=== PATIENT | female | born 1960 | race Caucasian/White ===

== ENCOUNTER 2016-10-27 12:52 | Inpatient (IN) | payer MEDICAID ==
[2016-10-27] VITALS (15 sets, daily range): BP systolic 83–170; BP diastolic 43–76
[~2016-10-27] VITALS: Ht 157.5 cm; Wt 78.0 kg
[~2016-10-27 12:52] MED LIST: AMLO10TA4 PO; ASPI-1159 PO; ATEN50TA PO; CINA30 PO; GABA300C PO; GLIM4TAB2 PO; PIOG30TA10 PO; REN800 PO
[2016-10-27] MEDS ORDERED: SODIUM CHLORIDE 0.9% 1000ML BAG (SEPSIS BOLUS) IV ONE (13:30)
[2016-10-27 13:40] LABS: BASOPHILS % 1.2 % (0.0-2.0); EOSINOPHILS % 1.2 % (0.0-5.0); HEMATOCRIT. 35.1 % (36.0-48.0); HEMOGLOBIN. 11.5 g/dL (12.0-16.0); LYMPHOCYTES % 12.1 % (20.0-50.0); MEAN CORPUSCULAR VOLUME 94.8 fL (81.0-99.0); MEAN PLATELET VOLUME 10.6 fl (7.4-10.4); MONOCYTES % 4.7 % (2.0-8.0); NEUTROPHILS % 80.8 % (40.0-76.0); PLATELET 163 x1000/uL (130-400)
[2016-10-27 13:48] LABS: INR 1.3; PROTHROMBIN TIME 13.7 sec (9.4-11.6)
[2016-10-27 13:54] LABS: CARBON DIOXIDE 26 mEq/L (21-32); CHLORIDE 98 mEq/L (98-107)
[2016-10-27 14:02] LABS: AMMONIA 47 uMol/L (<32)
[2016-10-27] MEDS ORDERED: ACETAMINOPHEN 325MG TABLET PO ONE (14:15)
[2016-10-27] MEDS ORDERED: PIPERACILLIN/TAZ 3.375G PREMIX 50 ML IV NR (14:15)
[2016-10-27 14:24] LABS: TROPONIN I 0.85 ng/mL (0.00-0.04)
[2016-10-27] MEDS ORDERED: LACTULOSE 20G/30ML UDC PO ONE (15:15)
[2016-10-27] MEDS ORDERED: DEXTROSE 50% WATER 50ML SYRINGE IV ONE ×3 (15:28→15:30)
[2016-10-27] MEDS ORDERED: DEXT 10% WATER 1,000 ML IV ONE (15:35)
[2016-10-27] MEDS ORDERED: ACETAMINOPHEN 650MG SUPP PR ONE (15:45)
[2016-10-27] MEDS ORDERED: LIDOCAINE HCL 1% 20ML VIAL (Pyxis) INJ ONE (16:09)
[2016-10-27] MEDS ORDERED: SODIUM BICARBONATE 4% (2.4MEQ) 5ML VIAL IV ONE (16:10)
[2016-10-27 16:25] LABS: CLARITY URINE TURBID (CLEAR); COLOR URINE DARK YELLOW (YELLOW); GLUCOSE URINE NEGATIVE (NEGATIVE); KETONES URINE NEGATIVE (NEGATIVE); LEUKOCYTE ESTERASE URINE 3+ (NEGATIVE); NITRITE URINE POSITIVE (NEGATIVE); OCCULT BLOOD URINE 1+ (NEGATIVE); PH URINE 8.5 (4.5-8.0); PROTEIN URINE 4+ (NEGATIVE); SPECIFIC GRAVITY URINE 1.015 (1.005-1.030)
[2016-10-27 16:36] LABS: BG CARBOXYHEMOGLOBIN 0.8 % (0.5-1.5); BG DEOXYHEMOGLOBIN 13.8 % (0.0-5.0); BG FRACTION INSPIRED OXYGEN 40; BG HCO3 ACT 23.1 mmol/L (22.0-26.0); BG METHEMOGLOBIN 0.1 % (0.0-1.5); BG OXYGEN SATURATION 86.1 % (92.0-98.5); BG OXYHEMOGLOBIN 85.3 % (94.0-97.0); BG PCO2 36.3 mmHg (35.0-45.0); BG PH 7.422 (7.350-7.450); BG PO2 56.3 mmHg (75.0-100.0); BG SAMPLE SITE RIGHT BRACHIAL; BG VENT MODE MASK - SIMPLE
[2016-10-27] MEDS ORDERED: ACETAMINOPHEN 325MG TABLET PO PRN (19:30)
[2016-10-27] MEDS ORDERED: CLONIDINE 0.1MG TABLET PO PRN (20:00)
[2016-10-27] MEDS: BLOOD SUGAR DIAGNOSTIC STRIP TEST SCH (20:06)
[2016-10-27] MEDS: INSULIN LISPRO 100 UNITS/ML SUBCUT SCH (20:06)
[2016-10-27] MEDS ORDERED: DEXTROSE 10% WATER 500 ML IV ONE (20:15)
[2016-10-27] MEDS: HEPARIN 5000 UNITS/ML VIAL SUBCUT SCH (21:30)
[2016-10-27] MEDS ORDERED: CEFTRIAXONE 1 G PREMIX 50 ML IV SCH (22:30)
[2016-10-27] MEDS: HYDROCODONE/ACETAMINOPHEN 5/325MG TABLET PO PRN (23:47)
[2016-10-28] VITALS (56 sets, daily range): BP systolic 93–175; BP diastolic 35–86
[2016-10-28] MEDS: DEXTROSE 50% WATER 50ML SYRINGE IV PRN ×2 (00:09→12:18)
[2016-10-28 05:51] LABS: BASOPHILS % 1.2 % (0.0-2.0); HEMATOCRIT. 32.4 % (36.0-48.0); HEMOGLOBIN. 10.5 g/dL (12.0-16.0); LYMPHOCYTES % 15.4 % (20.0-50.0); MEAN CORPUSCULAR HEMOGLOBIN 30.9 pg (28.0-32.0); MEAN CORPUSCULAR VOLUME 95.2 fL (81.0-99.0); MEAN PLATELET VOLUME 10.6 fl (7.4-10.4); MONOCYTES % 7.1 % (2.0-8.0); NEUTROPHILS % 73.3 % (40.0-76.0); PLATELET 122 x1000/uL (130-400)
[2016-10-28 07:16] LABS: TROPONIN I 0.43 ng/mL (0.00-0.04)
[2016-10-28] MEDS: BLOOD SUGAR DIAGNOSTIC STRIP TEST SCH ×5 (07:50→17:41)
[2016-10-28] MEDS: INSULIN LISPRO 100 UNITS/ML SUBCUT SCH ×4 (08:20→20:27)
[2016-10-28] MEDS ORDERED: CEFEPIME 2,000 MG in DEXT 5% WATER 100 ML IV SCH (09:00)
[2016-10-28] MEDS: HEPARIN 5000 UNITS/ML VIAL SUBCUT SCH ×2 (09:57→21:28)
[2016-10-28] MEDS: DEXTROSE 10% WATER 500 ML IV SCH ×2 (09:58→17:41)
[2016-10-28] MEDS: HYDROCODONE/ACETAMINOPHEN 5/325MG TABLET PO PRN ×2 (12:18→19:55)
[2016-10-28] MEDS ORDERED: DEXT 10% WATER 1,000 ML IV SCH (19:00)
[2016-10-29] VITALS (30 sets, daily range): BP systolic 40–158; BP diastolic 19–101
[2016-10-29] MEDS: BLOOD SUGAR DIAGNOSTIC STRIP TEST SCH ×10 (00:13→23:56)
[2016-10-29] MEDS: DEXTROSE 50% WATER 50ML SYRINGE IV PRN ×2 (00:14→03:59)
[2016-10-29 05:53] LABS: BASOPHILS % 1.4 % (0.0-2.0); EOSINOPHILS % 4.6 % (0.0-5.0); HEMATOCRIT. 31.5 % (36.0-48.0); HEMOGLOBIN. 10.4 g/dL (12.0-16.0); LYMPHOCYTES % 20.9 % (20.0-50.0); MEAN CORPUSCULAR HEMOGLOBIN 30.9 pg (28.0-32.0); MEAN PLATELET VOLUME 10.3 fl (7.4-10.4); MONOCYTES % 13.5 % (2.0-8.0); NEUTROPHILS % 59.6 % (40.0-76.0); PLATELET 127 x1000/uL (130-400); RED BLOOD CELL COUNT 3.35 mill/uL (4.2-5.4)
[2016-10-29 06:54] LABS: PHOSPHORUS 5.5 mg/dL (2.5-4.9)
[2016-10-29] MEDS: INSULIN LISPRO 100 UNITS/ML SUBCUT SCH ×4 (08:20→20:45)
[2016-10-29] MEDS: HEPARIN 5000 UNITS/ML VIAL SUBCUT SCH ×2 (08:21→20:45)
[2016-10-29] MEDS: HYDROCODONE/ACETAMINOPHEN 5/325MG TABLET PO PRN (08:26)
[2016-10-29] MEDS ORDERED: CEFEPIME 1,000 MG in DEXTROSE 5% WATER 50 ML IV SCH (09:00)
[2016-10-29] MEDS: LOSARTAN POTASSIUM 25 MG TABLET PO SCH (09:15)
[2016-10-29] MEDS: CARVEDILOL 3.125 MG TABLET PO SCH ×2 (09:15→20:44)
[2016-10-29] MEDS: DIPHENHYDRAMINE 25MG CAPSULE PO PRN ×2 (09:17→20:44)
[2016-10-29] MEDS: DEXTROSE 20% WATER 500 ML IV SCH (09:18)
[2016-10-29] MEDS: SEVELAMER CARBONATE 800 MG TABLET PO SCH ×3 (09:18→17:25)
[2016-10-29] MEDS: ASPIRIN 81MG EC TABLET PO SCH (10:05)
[2016-10-29] MEDS: CLOPIDOGREL 75MG TABLET PO SCH (10:05)
[2016-10-29] MEDS: MORPHINE SULFATE 2 MG/ML CPJ (NOT FOR IM USE) IV PRN (17:26)
[2016-10-29] MEDS: AMPICILLIN 2,000 MG in SODIUM CHLORIDE 0.9% 100 ML IV SCH (21:43)
[2016-10-30] VITALS (8 sets, daily range): BP systolic 93–150; BP diastolic 48–97
[2016-10-30] MEDS: BLOOD SUGAR DIAGNOSTIC STRIP TEST SCH ×6 (04:12→23:46)
[2016-10-30] MEDS: DEXTROSE 20% WATER 500 ML IV SCH ×4 (04:55→18:24)
[2016-10-30] MEDS: AMPICILLIN 2,000 MG in SODIUM CHLORIDE 0.9% 100 ML IV SCH ×3 (05:00→22:31)
[2016-10-30 06:47] LABS: EOSINOPHILS % 5.6 % (0.0-5.0); HEMATOCRIT. 31.9 % (36.0-48.0); HEMOGLOBIN. 10.6 g/dL (12.0-16.0); MEAN CORPUSCULAR VOLUME 93.6 fL (81.0-99.0); MEAN PLATELET VOLUME 10.3 fl (7.4-10.4); MONOCYTES % 12.9 % (2.0-8.0); NEUTROPHILS % 56.5 % (40.0-76.0); PLATELET 144 x1000/uL (130-400); RED BLOOD CELL COUNT 3.41 mill/uL (4.2-5.4); RED CELL DISTRIBUTION WIDTH 18.5 % (11.6-14.6)
[2016-10-30] MEDS: INSULIN LISPRO 100 UNITS/ML SUBCUT SCH ×4 (08:00→21:00)
[2016-10-30] MEDS: SEVELAMER CARBONATE 800 MG TABLET PO SCH ×3 (08:53→17:55)
[2016-10-30] MEDS: CARVEDILOL 3.125 MG TABLET PO SCH ×2 (08:54→20:57)
[2016-10-30] MEDS: LOSARTAN POTASSIUM 25 MG TABLET PO SCH (08:54)
[2016-10-30] MEDS: CLOPIDOGREL 75MG TABLET PO SCH (08:54)
[2016-10-30] MEDS: HEPARIN 5000 UNITS/ML VIAL SUBCUT SCH ×2 (08:55→20:58)
[2016-10-30] MEDS: ASPIRIN 81MG EC TABLET PO SCH (08:55)
[2016-10-30] MEDS: DIPHENHYDRAMINE 25MG CAPSULE PO PRN ×2 (09:03→22:33)
[2016-10-30 14:29] LABS: HEPATITIS B SURFACE ANTIGEN NEGATIVE
[2016-10-30 14:57] LABS: HEPATITIS B CORE AB IGM NEGATIVE
[2016-10-30 14:58] LABS: HEPATITIS A AB IGM NEGATIVE (NEGATIVE)
[2016-10-30] MEDS: MORPHINE SULFATE 2 MG/ML CPJ (NOT FOR IM USE) IV PRN ×2 (15:55→22:32)
[2016-10-30] MEDS: ATORVASTATIN CALCIUM 20MG TABLET PO SCH (20:57)
[2016-10-31] VITALS (11 sets, daily range): BP systolic 96–163; BP diastolic 14–87
[2016-10-31] MEDS: BLOOD SUGAR DIAGNOSTIC STRIP TEST SCH ×5 (04:00→20:00)
[2016-10-31] MEDS: AMPICILLIN 2,000 MG in SODIUM CHLORIDE 0.9% 100 ML IV SCH ×3 (05:39→23:57)
[2016-10-31] MEDS: DEXTROSE 20% WATER 500 ML IV SCH (05:43)
[2016-10-31 06:21] LABS: HEMATOCRIT. 32.1 % (36.0-48.0); HEMOGLOBIN. 10.6 g/dL (12.0-16.0); MEAN CORPUSCULAR HEMOGLOBIN 30.7 pg (28.0-32.0); MEAN CORPUSCULAR VOLUME 93.3 fL (81.0-99.0); MEAN PLATELET VOLUME 9.9 fl (7.4-10.4); PLATELET 143 x1000/uL (130-400); RED BLOOD CELL COUNT 3.44 mill/uL (4.2-5.4); RED CELL DISTRIBUTION WIDTH 18.6 % (11.6-14.6)
[2016-10-31] MEDS: INSULIN LISPRO 100 UNITS/ML SUBCUT SCH ×4 (08:00→20:30)
[2016-10-31] MEDS: CARVEDILOL 3.125 MG TABLET PO SCH ×2 (08:41→22:01)
[2016-10-31] MEDS: LOSARTAN POTASSIUM 25 MG TABLET PO SCH (08:41)
[2016-10-31] MEDS: CLOPIDOGREL 75MG TABLET PO SCH (09:02)
[2016-10-31] MEDS: ASPIRIN 81MG EC TABLET PO SCH (09:02)
[2016-10-31] MEDS: SEVELAMER CARBONATE 800 MG TABLET PO SCH ×3 (09:03→17:50)
[2016-10-31] MEDS: HEPARIN 5000 UNITS/ML VIAL SUBCUT SCH ×2 (09:04→20:24)
[2016-10-31] MEDS: HYDROCODONE/ACETAMINOPHEN 5/325MG TABLET PO PRN (13:07)
[2016-10-31] MEDS: DIPHENHYDRAMINE 25MG CAPSULE PO PRN ×2 (13:07→22:00)
[2016-10-31] MEDS: GABAPENTIN 300MG CAPSULE PO SCH (17:50)
[2016-10-31] MEDS: ATORVASTATIN CALCIUM 20MG TABLET PO SCH (20:23)
[2016-11-01] VITALS: BP 123/31
[2016-11-01 02:00] VITALS: BP 138/49
[2016-11-01 04:00] VITALS: BP 125/55
[2016-11-01] MEDS: BLOOD SUGAR DIAGNOSTIC STRIP TEST SCH ×4 (04:00→12:26)
[2016-11-01] MEDS: DIPHENHYDRAMINE 25MG CAPSULE PO PRN (04:24)
[2016-11-01 06:00] VITALS: BP 161/57
[2016-11-01] MEDS: AMPICILLIN 2,000 MG in SODIUM CHLORIDE 0.9% 100 ML IV SCH (06:01)
[2016-11-01] MEDS: INSULIN LISPRO 100 UNITS/ML SUBCUT SCH ×2 (07:33→13:00)
[2016-11-01 10:00] VITALS: BP 128/72
[2016-11-01] MEDS: CARVEDILOL 3.125 MG TABLET PO SCH (10:32)
[2016-11-01] MEDS: GABAPENTIN 300MG CAPSULE PO SCH (10:32)
[2016-11-01] MEDS: CLOPIDOGREL 75MG TABLET PO SCH (10:32)
[2016-11-01] MEDS: ASPIRIN 81MG EC TABLET PO SCH (10:32)
[2016-11-01] MEDS: HEPARIN 5000 UNITS/ML VIAL SUBCUT SCH (10:33)
[2016-11-01] MEDS: SEVELAMER CARBONATE 800 MG TABLET PO SCH ×2 (10:43→13:00)
[2016-11-01] MEDS: LOSARTAN POTASSIUM 25 MG TABLET PO SCH (10:43)
[2016-11-01 14:10] LABS: PLATELET ESTIMATE NORMAL
== END 2016-11-01 15:20 | disposition left against medical advice (07) | DRG 720 ==
LOC: ER 12:52 → CVICU 15:36 → EDBEDREQSVC 15:40 → EDBEDREQTM 15:40 → EDBEDREQ 15:40 → ENRESERV 15:43 → 5EST 10-29 14:00
PROVIDERS: ADMIT Internal Medicine; ATTEND Internal Medicine
PROC: 02HV33Z Insertion of Infusion Device into Superior Vena Cava, Percutaneous Approach (ICD-10-PCS; principal; 2016-10-27)
PROC: B548ZZA Ultrasonography of Superior Vena Cava, Guidance (ICD-10-PCS; 2016-10-27)
DX: A41.51 Sepsis due to Escherichia coli [E. coli] (principal); I21.4 Non-ST elevation (NSTEMI) myocardial infarction; J96.01 Acute respiratory failure with hypoxia; R65.21 Severe sepsis with septic shock; G92 Toxic encephalopathy; I12.0 Hypertensive chronic kidney disease with stage 5 chronic kidney disease or end stage renal disease; N18.6 End stage renal disease; I42.9 Cardiomyopathy, unspecified; E87.70 Fluid overload, unspecified; N39.0 Urinary tract infection, site not specified; I27.2 Other secondary pulmonary hypertension; I25.10 Atherosclerotic heart disease of native coronary artery without angina pectoris; I13.11 Hypertensive heart and chronic kidney disease without heart failure, with stage 5 chronic kidney disease, or end stage renal disease; I08.1 Rheumatic disorders of both mitral and tricuspid valves; E11.649 Type 2 diabetes mellitus with hypoglycemia without coma; E11.22 Type 2 diabetes mellitus with diabetic chronic kidney disease; D63.1 Anemia in chronic kidney disease; E11.42 Type 2 diabetes mellitus with diabetic polyneuropathy; Z95.5 Presence of coronary angioplasty implant and graft; Z99.2 Dependence on renal dialysis; Z86.73 Personal history of transient ischemic attack (TIA), and cerebral infarction without residual deficits; Z83.3 Family history of diabetes mellitus; Z82.49 Family history of ischemic heart disease and other diseases of the circulatory system; Z79.899 Other long term (current) drug therapy; Z79.84 Long term (current) use of oral hypoglycemic drugs; Z79.82 Long term (current) use of aspirin; Z79.02 Long term (current) use of antithrombotics/antiplatelets
CPT/HCPCS: 36415; 36569; 36600; 70450; 71010; 76937; 80048; 80053; 81001; 82140; 82375; 82533; 82805; 82962; 83605; 83735; 84100; 84484; 85025; 85610; 86705; 86709; 86803; 87015; 87040; 87045; 87077; 87086; 87186; 87340; 87427; 87449; 92610; 93005; 93306; 93970; 96374; 96375; 99291; C1725; J0290; J0692; J0696; J1644; J1815; J2270; J2543; J3490; J7030; J7050; J7060; Q0163